=== PATIENT | female | born 1945 | race Caucasian/White ===

== ENCOUNTER 2017-05-19 20:49 | Emergency (ER) | payer MEDICARE, OTHER ==
[~2017-05-19] VITALS: Ht 154.9 cm; Wt 68.0 kg
[~2017-05-19 20:49] MED LIST: ACET500; ATOR10; CARI350; CARI350 PO; CODACE60; LISI10; METO50ER; OXYACE5T PO; ZOLP10
[2017-05-19] MEDS ORDERED: Robaxin-750750 MG PO (22:36)
== END 2017-05-19 22:50 | disposition home or self-care (01) ==
LOC: ER 20:49
DX: M19.012 Primary osteoarthritis, left shoulder (principal); I10 Essential (primary) hypertension; E78.00 Pure hypercholesterolemia, unspecified; Z88.8 Allergy status to other drugs, medicaments and biological substances; Z79.899 Other long term (current) drug therapy
CPT/HCPCS: 73030; 99283

== ENCOUNTER 2017-05-22 17:18 | Emergency (ER) | payer MEDICARE, OTHER ==
[~2017-05-22] VITALS: Ht 154.9 cm; Wt 68.0 kg
[~2017-05-22 17:18] MED LIST changes: +Robaxin-750750 MG PO
[2017-05-22] MEDS ORDERED: Robaxin-750750 MG PO (18:02)
== END 2017-05-22 18:09 | disposition home or self-care (01) ==
LOC: ER 17:18
DX: M54.2 Cervicalgia (principal); I10 Essential (primary) hypertension; E78.00 Pure hypercholesterolemia, unspecified; Z88.8 Allergy status to other drugs, medicaments and biological substances; Z79.899 Other long term (current) drug therapy
CPT/HCPCS: 99281

== ENCOUNTER 2017-08-08 08:35 | Day surgery (SDC) | payer MEDICARE, OTHER ==
[~2017-08-08] VITALS: Ht 154.9 cm; Wt 67.9 kg
[2017-08-08] MEDS ORDERED: SIMV40 PO (08:55)
[2017-08-08] MEDS ORDERED: CLON.2 PO (08:58)
[2017-08-08] MEDS ORDERED: HYDRA25 PO (08:59)
[2017-08-08] MEDS ORDERED: OXYC15ER PO (09:00)
[2017-08-08] MEDS ORDERED: Fiorinal Capsu1 EACH PO (09:01)
[2017-08-08] MEDS ORDERED: VENL75ER PO (09:01)
[2017-08-08] MEDS ORDERED: CYCL10 PO (09:02)
[2017-08-08] MEDS ORDERED: Ventolin/Prove6.7 GM (09:23)
[2017-08-08] MEDS ORDERED: Imitrex25 MG PO (09:24)
== END 2017-08-08 10:16 | disposition home or self-care (01) ==
LOC: ORSCSDS 08:35
PROVIDERS: Anesthesiology
PROC: 3E0R33Z Introduction of Anti-inflammatory into Spinal Canal, Percutaneous Approach (ICD-10-PCS; principal; 2017-08-08 09:45)
DX: M50.122 Cervical disc disorder at C5-C6 level with radiculopathy (principal); E78.00 Pure hypercholesterolemia, unspecified; F41.9 Anxiety disorder, unspecified; I10 Essential (primary) hypertension; F32.9 Major depressive disorder, single episode, unspecified; J45.909 Unspecified asthma, uncomplicated; Z79.899 Other long term (current) drug therapy
CPT/HCPCS: J1040; J2250; J3010

== ENCOUNTER 2018-08-01 10:07 | Emergency (ER) | payer MEDICARE, OTHER ==
[~2018-08-01] VITALS: Ht 154.9 cm; Wt 61.7 kg
[~2018-08-01 10:07] MED LIST changes: +CLON.2 PO; +CYCL10 PO; +Fiorinal Capsu1 EACH PO; +HYDRA25 PO; +IBUP600 PO; +Imitrex25 MG PO; +OXYC15ER PO; +Robaxin500 MG PO; +SIMV40 PO; +VENL75ER PO; +Ventolin/Prove6.7 GM
== END 2018-08-01 11:37 | disposition home or self-care (01) ==
LOC: ER 10:07
DX: S22.31XA Fracture of one rib, right side, initial encounter for closed fracture (principal); E78.00 Pure hypercholesterolemia, unspecified; I10 Essential (primary) hypertension; Z79.899 Other long term (current) drug therapy; Z88.8 Allergy status to other drugs, medicaments and biological substances; Z88.6 Allergy status to analgesic agent; W19.XXXA Unspecified fall, initial encounter
CPT/HCPCS: 96372; 99283-25; J1170

== ENCOUNTER 2018-08-03 20:03 | Inpatient (IN) | payer MEDICARE, OTHER ==
[~2018-08-03] VITALS: Ht 154.9 cm; Wt 63.7 kg
[~2018-08-03 20:03] MED LIST changes: -Ventolin/Prove6.7 GM; +Ventolin/Prove6.7 GM INH
[2018-08-03 21:36] LABS: BASOPHILS ABSOLUTE AUTO 0.05 K/mm3 (0.00-0.23); BASOPHILS PERCENT AUTO 0 % (0-2); EOSINOPHILS ABSOLUTE AUTO 0.01 K/mm3 (0.00-0.68); EOSINOPHILS PERCENT AUTO 0 % (0-6); Hematocrit 44.6 % (33.0-51.0); Hemoglobin 15.3 g/dL (11.5-16.0); IMMATURE GRAN ABSOLUTE AUTO 0.15 K/mm3 (0.00-0.10); IMMATURE GRAN PERCENT AUTO 1 % (0-1); LYMPHOCYTES ABSOLUTE AUTO 0.84 K/mm3 (0.84-5.20); LYMPHOCYTES PERCENT AUTO 5 % (21-46); MONOCYTES ABSOLUTE AUTO 0.85 K/mm3 (0.16-1.47); MONOCYTES PERCENT AUTO 5 % (4-13); Mean Corpuscular HGB Conc 34.3 g/dL (31.5-36.5); Mean Corpuscular Volume 93 fL (80-100); Mean Platelet Volume 9.4 fL (9.1-12.4); NEUTROPHILS ABSOLUTE AUTO 13.95 K/mm3 (1.96-9.15); NEUTROPHILS PERCENT AUTO 88 % (41-73); Platelet Count 398 K/mm3 (150-400); RDW Coefficient Variation 11.7 % (11.7-14.2); RDW Standard Deviation 40.2 fL (35.1-46.3); Red Blood Cell Count 4.78 M/mm3 (3.80-5.20); White Blood Cell Count 15.85 K/mm3 (4.00-11.30)
[2018-08-03 22:06] LABS: Albumin, Blood 4.2 g/dL (3.4-5.0); Bilirubin, Total 0.6 mg/dL (0.1-1.0); Calcium, Blood 14.3 mg/dL (8.5-10.1); Creatinine, Blood 1.27 mg/dL (0.40-1.00); Globulin, Blood 4.3 g/dL (2.2-4.0); Total Protein, Blood 8.5 g/dL (6.4-8.2)
[2018-08-03 23:25] LABS: Free Thyroxine 1.8 ng/dL (0.70-1.60); Magnesium, Blood 2.4 mg/dL (1.6-2.4)
[2018-08-03 23:32] LABS: Thyroid Stimulating Hormone 0.713 uIU/mL (0.360-4.800); Triiodothyronine, Free 2.07 pg/mL (2.18-3.98)
[2018-08-04 00:07] LABS: Creatine Kinase MB 27.8 ng/mL (0.0-3.6); Creatine Kinase MB Index 2.5 (0.0-4.0)
[2018-08-04 03:57] LABS: BASOPHILS ABSOLUTE AUTO 0.02 K/mm3 (0.00-0.23); BASOPHILS PERCENT AUTO 0 % (0-2); EOSINOPHILS ABSOLUTE AUTO 0.01 K/mm3 (0.00-0.68); EOSINOPHILS PERCENT AUTO 0 % (0-6); Hematocrit 40.4 % (33.0-51.0); Hemoglobin 13.8 g/dL (11.5-16.0); IMMATURE GRAN ABSOLUTE AUTO 0.13 K/mm3 (0.00-0.10); IMMATURE GRAN PERCENT AUTO 1 % (0-1); LYMPHOCYTES ABSOLUTE AUTO 1.06 K/mm3 (0.84-5.20); LYMPHOCYTES PERCENT AUTO 8 % (21-46); MONOCYTES ABSOLUTE AUTO 1.22 K/mm3 (0.16-1.47); MONOCYTES PERCENT AUTO 9 % (4-13); Mean Corpuscular HGB 31.9 pg (26.0-34.0); Mean Corpuscular HGB Conc 34.2 g/dL (31.5-36.5); Mean Corpuscular Volume 93 fL (80-100); Mean Platelet Volume 9.2 fL (9.1-12.4); NEUTROPHILS ABSOLUTE AUTO 10.56 K/mm3 (1.96-9.15); NEUTROPHILS PERCENT AUTO 81 % (41-73); Platelet Count 384 K/mm3 (150-400); RDW Coefficient Variation 11.7 % (11.7-14.2); RDW Standard Deviation 40.4 fL (35.1-46.3); Red Blood Cell Count 4.33 M/mm3 (3.80-5.20)
--- NOTE | 2018-08-04 04:16 | NUR ---
ADMISSION: PATIENT ADMISSION AND ASSESSMENT COMPLETED. PATIENT HAS INTERMITTENT NONSENSICAL SPEECH, THINKING SHE WAS HOME AT ONE POINT. PATIENT IS CONSTANTLY FIDGETING, PULLED OUT 2 IV'S AND CONTINUOUSLY PULLS OF O2 SENSOR FROM FINGER. NEW 20 GAUGE PLACED BY ULTRA SOUND INTO REENA, PATIENT STATED THE IVF HURT HER EVEN THOUGH THEY WERE NOT RUNNING, WHEN PATIENT CALMED DOWN IVF RESTARTED AND PATIENT DID NOT COMPLAIN OF PAIN. PATIENT C/O SEVER PAIN STATING DILAUDID DOES NOT WORK WITH MOANING, GRIMACING AND ROCKING. WHEN PATIENT IS UNAWARE THAT NURSE IS THERE SHE EXIBITS NONE OF THE PAIN SIGNS ONLY THE NONSTOP BODY MOVEMENTS. PATIENTS HR AND BP HAVE GONE DOWN AFTER ADMINISTRATION OF DILAUDID TOO. NURSE ASKED PATIENT IF SHE HAD TAKEN ANY SUBSTANCES SUCH METHANPHETAMINES WHICH COULD BE AFFECTING HER BP AND HR. PATIENT STATED NO AND THAT SHE USED TO BE TO A HEROIN ADDICT. WILL CONTINUE TO MONITOR HR AND BP TO CONTINUE IMPROVEMENT.
[2018-08-04 04:41] LABS: Albumin, Blood 3.7 g/dL (3.4-5.0); Albumin/Globulin Ratio 0.9 (0.8-1.8); Bilirubin, Total 0.6 mg/dL (0.1-1.0); Bun/Creatinine Ratio 22.5 (12.0-20.0); Calcium, Blood 13.9 mg/dL (8.5-10.1); Creatinine, Blood 1.2 mg/dL (0.40-1.00); Globulin, Blood 3.9 g/dL (2.2-4.0); Potassium, Blood 3.8 mmol/L (3.5-5.5); Total Protein, Blood 7.6 g/dL (6.4-8.2)
--- NOTE | 2018-08-04 08:00 | NUR ---
pt laying in bed with eyes open, has jerking motions of all ext. continuously. she is able to answer orientation questions, but is confused in speech, says random things. lungs are clear in upper henri[place], dim in bases, but not able to take deep breaths, and unable to fully cooperate with assessment, follows some commands. states she has not voided all night, and feels like she needs to go badly, reports she can't get oob at this time, states the last time she attempted to get to the br at home it took her 7 hrs, asked her why her spouce isn't assisting her, she said he tries but pulls on her the wrong way, did a bladder scan which showed over 999mls. Dr. Gomez called and ok to drain bladder, but should not leave bolaños. this was done with steril technique, draining clear yellow urine. states she takes her pain meds for her neck stenosis. iv to ayesha infiltrated, fluid was stopped until we can get another line established, hrr, tele in place running st per monitor, hitting 130 -140's, no edema noted, ppp+2, cap refill <3sec, skin has wound to her right elbow, apparently took a fall at home and broke ribs on the right, dressing to elbow. her knees and feet are red, not open. moves ext well, but refusing to get oob, gloria. call light in reach.
[2018-08-04 09:11] LABS: Source, Urine Catheter
[2018-08-04 09:48] LABS: Bilirubin, Urine Neg (Neg); Blood, Urine 2+ (Neg); Glucose Qualitative, Urine 1+ (Neg); Ketones, Urine 2+ (Neg); Leukocyte Esterase, Urine Neg (Neg); Nitrite, Urine Neg (Neg); Protein, Urine 2+ (Neg); Urobilinogen, Urine NORM (Normal); pH, Urine 6.5 (5.0-8.0)
[2018-08-04 10:10] LABS: Appearance, Urine Clear (Clear); Color, Urine Yellow (P-Yellow)
[2018-08-04 10:14] LABS: Bacteria Rare /hpf; Red Blood Cells, Urine 0-2 /hpf (0-2); Squamous Epithelial Cells Rare /hpf (Few)
[2018-08-04 10:15] LABS: Granular Casts 0-2 /lpf (0); White Blood Cells, Urine Not Seen /hpf (0-5)
[2018-08-04] MEDS ORDERED: METO50 PO (11:29)
[2018-08-04] MEDS ORDERED: HYDPAM50 PO (11:31)
[2018-08-04] MEDS ORDERED: LEVSOD137 PO (11:32)
[2018-08-04] MEDS ORDERED: CYCL10 PO (11:33)
[2018-08-04] MEDS ORDERED: OXYC15ER PO (11:40)
[2018-08-04 13:22] LABS: U Amphetamine Screen Not Detected; U Barbituate Screen Not Detected; U Benzodiazapine Screen Not Detected; U Buprenorphine Screen Not Detected; U Cannabinoids Screen Not Detected; U Cocaine Screen Not Detected; U Methadone Screen Not Detected; U Methamphetamine Screen Not Detected; U Opiates Screen Not Detected; U Oxycodone Screen DETECTED; U Phencyclidine Screen Not Detected; U Propoxyphene Screen Not Detected
--- NOTE | 2018-08-04 13:30 | NUR ---
pt laying in bed, is sleeping, seems to be much more relaxed and not jerking like she was. wakes easily, states as long as she isn't coughing or moving she isn't having pain, but if she coughs it's 10. call light in reach. spouce was in to see her as well as her son.
--- NOTE | 2018-08-04 17:14 | NUR ---
pt b/p is better this afternoon, but heart rate continues in the 130's, spoke with Dr. Gomez about it, no new orders recieved. call pt has been sleeping through the afternoon, wakes easily. spouce was in to see her, gave an update. call light in reach.
--- NOTE | 2018-08-04 19:35 | NUR ---
CALLED BACK AND ASKED NURSE TO GIVE HER PAIN MED. SHE IS SLEEPING SOUNDLY, SNORING DOES WAKE EASILY, STATES PAIN IS OK. GAVE SMALL DOSE OF DILAUDID WITHOUT RESULTS. CALL LIGHT IN REACH.
[2018-08-05 03:58] LABS: BASOPHILS ABSOLUTE AUTO 0.02 K/mm3 (0.00-0.23); BASOPHILS PERCENT AUTO 0 % (0-2); EOSINOPHILS ABSOLUTE AUTO 0.01 K/mm3 (0.00-0.68); EOSINOPHILS PERCENT AUTO 0 % (0-6); Hematocrit 37.8 % (33.0-51.0); IMMATURE GRAN ABSOLUTE AUTO 0.11 K/mm3 (0.00-0.10); IMMATURE GRAN PERCENT AUTO 1 % (0-1); LYMPHOCYTES ABSOLUTE AUTO 1.27 K/mm3 (0.84-5.20); LYMPHOCYTES PERCENT AUTO 15 % (21-46); MONOCYTES ABSOLUTE AUTO 1.04 K/mm3 (0.16-1.47); MONOCYTES PERCENT AUTO 12 % (4-13); Mean Corpuscular HGB 31.4 pg (26.0-34.0); Mean Corpuscular HGB Conc 34.4 g/dL (31.5-36.5); Mean Corpuscular Volume 91 fL (80-100); Mean Platelet Volume 8.8 fL (9.1-12.4); NEUTROPHILS ABSOLUTE AUTO 6.11 K/mm3 (1.96-9.15); NEUTROPHILS PERCENT AUTO 72 % (41-73); Platelet Count 374 K/mm3 (150-400); RDW Coefficient Variation 11.9 % (11.7-14.2); RDW Standard Deviation 40.1 fL (35.1-46.3); Red Blood Cell Count 4.14 M/mm3 (3.80-5.20); White Blood Cell Count 8.56 K/mm3 (4.00-11.30)
[2018-08-05 04:18] LABS: CPK Creatine Kinase 181 U/L (26-193)
[2018-08-05 04:27] LABS: Albumin, Blood 2.8 g/dL (3.4-5.0); Anion Gap 8 mmol/L (6-16); Blood Urea Nitrogen 19 mg/dL (8-24); Bun/Creatinine Ratio 23.3 (12.0-20.0); CO2, Blood 25 mmol/L (21-32); Chloride, Blood 96 mmol/L (98-108); Creatinine, Blood 0.81 mg/dL (0.40-1.00); Glomerular Filtration Rate >60 (60-); Glucose, Blood 95 mg/dL (70-99); Phosphorus, Blood 1.4 mg/dL (2.5-4.9); Potassium, Blood 3.2 mmol/L (3.5-5.5); Sodium, Blood 129 mmol/L (136-145)
[2018-08-05 04:29] LABS: Calcium, Blood 10.9 mg/dL (8.5-10.1)
--- NOTE | 2018-08-05 04:31 | NUR ---
SHIFT SUMMARY: PATIENTS SON STATED THAT HE DID NOT WANT HIS MOTHER TO BE DISCHARGED WITHOUT NOTIFYING HIM BECAUSE HE IS ATTEMPTING TO GET A BED FOR HER. PATIENTS SON STATED THAT SHE HAS BEEN SLEEPING IN A CHAIR FOR A FEW MONTHS NOW, HE ALSO WANTED THE MD TO KNOW THAT PATIENT HAS BEEN TAKING MEDICATIONS THAT ARE NOT HERS, SOME OF THE MEDICATIONS SHE TAKES ARE HER HUSBANDS ACCORDING TO SON. BAG WAS OF ALL MEDICATIONS SHE TAKES WAS PROVIDED AND GIVEN TO PHARMACY. PATIENT SLEPT MAJORITY OF NIGHT, HR STILL HIGH BUT ALL OTHER VSS. BED IS LOW AND LOCKED WITH EXIT ALARM ON.
--- NOTE | 2018-08-05 11:37 | NUR ---
BEGINNING OF SHIFT Assumed care at 0700. Report received from Michelle MEDINA. Pt on room air. [place] mentation. When explaining plan of care, pt often interjects "Yeah. I know." Pt initially refused scheduled oxycodone, stating "I'm not going to take it. It does nothing for my rib pain and I'm trying to stop taking it anyways. I don't want to be on it anymore." This RN explained benefits of using PO pain medication in addition to IV pain medication. Pt unreceptive and continues to refuse PO pain meds. Pt requests dose of dilaudid instead. Within one hour of administration, pt's HR gradually decreased from 130s-140s to 110s-120s. Pt awake and talking to staff. While Dr Gomez at bedside, this RN notified provider that pt was refusing PO pain medication. Upon attempting to educate the pt on neccesity to use PO pain control along with IV pain control, pt became defensive and irritable, insulting staff members and asking for staff to "leave me alone". This RN remained at bedside until pt deescalated. Pt then became receptive to education and agreed to use oxycodone and flutter valve. Goals set with patient to sit up in chair for dinner today. Pt states this is a reasonable goal and states she would like her pain to be controlled enough for her to start moving around. Flutter valve placed at bedside and educated pt on use. Pt states "I'll use it when I am able to sit up."
--- NOTE | 2018-08-05 17:44 | NUR ---
SHIFT SUMMARY No changes noted since shift assessment. Pt successfully sat up on edge of bed and transferred to chair with this RN. Pt then worked with physical therapy and mobilized into the bathroom. Pt has been agreeable to taking PO oxycodone. Dilaudid has been offered several times, reminding the patient that pain control is important because she needs to take deep breaths, cough, and move around. Pt verbalizes understanding, but often states she does not think she needs it. Pt has been using flutter valve and incentive spirometer. Pt had one visitor earlier, she states this visitor is her son. While visiting with the patient, the son made several accusatory comments towards the patient "Are you going to admit to taking the drugs?" "Did she put drugs in your drink" "I know you were taking dad's meds". This visitor spent about 45 minutes at the pt's bedside.
--- NOTE | 2018-08-05 21:41 | NUR ---
1915 ASSUMED CARE OF PATIENT, PATIENT IN [facility] VISITING WITH SON. STILL REPORTS PAIN IN LEFT SIDE, BUT WORSE WITH COUGH. SEE [employer] FOR FULL ASSESSMENT. PLAN FOR NOC SHIFT DISCUSSED, PATIENT AGREES. CALL LIGHT IN REACH, BED IN LOW POSITINE AND ALARM ON. WILL CONTINUE TO MONITOR
--- NOTE | 2018-08-06 05:52 | NUR ---
RESTING IN BED, MORE ALERT AND CALM THIS AM, BED IN LOW POSITION, CALL LIGHT IN REACH, ROOM TIDIED, WILL MONITOR TILL DAYSHIFT HAND OFF.
--- NOTE | 2018-08-06 09:01 | NUR ---
BEGINNING OF SHIFT Assumed care at 0700. Report recieved from Fermín MEDINA. Pt on room air. Sinus tachycardia per telemetry. Pt OOB to chair this morning for breakfast. Pt to be transferred to room 235. Report given to Medina MEDINA.
[2018-08-06 09:13] LABS: Anion Gap 8 mmol/L (6-16); Blood Urea Nitrogen 18 mg/dL (8-24); Bun/Creatinine Ratio 26.9 (12.0-20.0); CO2, Blood 25 mmol/L (21-32); Chloride, Blood 100 mmol/L (98-108); Creatinine, Blood 0.67 mg/dL (0.40-1.00); Glomerular Filtration Rate >60 (60-); Glucose, Blood 100 mg/dL (70-99); Phosphorus, Blood 1.1 mg/dL (2.5-4.9); Potassium, Blood 3.7 mmol/L (3.5-5.5); Sodium, Blood 133 mmol/L (136-145)
--- NOTE | 2018-08-06 09:23 | NUR ---
TRANSFER Pt transferred to room 235 via wheelchair accompanied by Noemi VACA and agustin RN. Meds, chart, and belongings transferred with patient.
--- NOTE | 2018-08-06 09:30 | NUR ---
pt arrived to room 235 from pcu oriented to room layout oob in chair to eat breakfast when pt is complete will assist back to bed
--- NOTE | 2018-08-06 10:57 | NUR ---
dr ventura called with message called reuben lisinopril 20 mg daily and hctz 25 mg daily
--- NOTE | 2018-08-06 11:03 | NUR ---
aspen ventura called back message given
--- NOTE | 2018-08-06 11:57 | NUR ---
PT KEMP CATH REMOVED PT HAD A BM
--- NOTE | 2018-08-06 16:15 | NUR ---
PT HAD A BM TOOK OUT THE HAT STATED SHE VOIDED
--- NOTE | 2018-08-06 18:28 | NUR ---
PT SITTING UP ON EDGE OF THE BED ZULEIKA PT STATED SHE TAKES EFFEXOR GOT A MEDS LIST FROM [facility] PT STATED SHE GETS IT FROM THE [place] MAIL ORDERED CALLED THEM THEY WOULD NOT RELASE THE ONFO OVER THE PHONE
--- NOTE | 2018-08-07 05:41 | NUR ---
PT HAD NO ACUTE CHANGES T/O NIGHT. HR SINUS TACH 1'TEENS PER TELE MONITOR. PT DENIED CP/PRESSURE/SOB. SATS >90% ON RA. I/S AND FLUTTER VALVE USE ENC. PAIN MGD W/PO PAIN MEDS AND ICE THERAPY. PT UP OOB W/SBA, DENIED DIZZINESS WHEN UP. PT USING CALL LIGHT FOR ASSISTANCE, BED ALARM ON FOR SAFETY. WILL CONT TO MONITOR UNTIL REP GIVEN TO ONCOMING RN.
--- NOTE | 2018-08-07 07:32 | NUR ---
pt sitting on edge of the bed pt has a benadryl pill loose on the floor pt stated she took it out of her purse and took some last night "im not taking pain meds if thats what you are thinking" assisted pt to bathroom pt wanting to sit up in chair
--- NOTE | 2018-08-07 10:38 | NUR ---
DR MOBLEY BY TO SEE PT PLAN FOR DISCHARGE [facility] PT DECLINING SHOWER AT THIS TIME STATED SHE IS SHAKEY AFTER THE WALK
--- NOTE | 2018-08-07 11:32 | NUR ---
PT REPOSISITONED STATED PAIN IS 7/10 PO OXY GIVEN
[2018-08-07] MEDS ORDERED: CLON.1 PO (12:15)
[2018-08-07] MEDS ORDERED: OXYC10ER PO (12:16)
[2018-08-07] MEDS ORDERED: LISI20 PO (12:18)
[2018-08-07] MEDS ORDERED: LIDO700A20 TOP (12:19)
[2018-08-07] MEDS ORDERED: GAVILAX17 GM PO (12:20)
[2018-08-07] MEDS ORDERED: OXYC5 PO (12:21)
--- NOTE | 2018-08-07 12:50 | NUR ---
DISCHARGE INSTRUCTIONS REVIEWED WITH PT VERBALIZED RX GIVEN AND RX CALLED TO [facility] PT REQ I GO OVER HER MEDS WITH HER SON WHEN THEY COME TO PICK HER UP
--- NOTE | 2018-08-07 14:20 | NUR ---
PT FAMILY AT BEDSIDE DISCHARGE INSTRUCTIONS REVIEWED WITH THEM ALONG WITH HER MEDS IN DETAIL ALSO GAVE THEM THE HARD COPIES OF HER MEDS WC ESCORT TO CAR
--- NOTE | 2018-08-07 15:06 | NUR ---
reuben called stated pt also had a rx for another dr for her 15 mg oxy rx from her pain dr talked with pharmacy to hold that rx untill this rx is done
== END 2018-08-07 14:03 | disposition home or self-care (01) | DRG 683 ==
LOC: ER 20:03 → PCU 08-04 00:43 → SURS 08-04 00:43 → PCU 08-04 01:55 → SURS 08-06 09:15
PROVIDERS: Emergency Medicine; Internal Medicine; Nurse Practitioner Acute Care; Physician Assistant; ADMIT Internal Medicine
DX: N17.9 Acute kidney failure, unspecified (principal); S27.0XXA Traumatic pneumothorax, initial encounter; S22.41XA Multiple fractures of ribs, right side, initial encounter for closed fracture; M62.82 Rhabdomyolysis; E87.1 Hypo-osmolality and hyponatremia; W19.XXXA Unspecified fall, initial encounter; K59.00 Constipation, unspecified; I10 Essential (primary) hypertension; E83.52 Hypercalcemia; G43.909 Migraine, unspecified, not intractable, without status migrainosus; E78.5 Hyperlipidemia, unspecified; E86.0 Dehydration; R33.9 Retention of urine, unspecified; E87.6 Hypokalemia; G89.4 Chronic pain syndrome; Z79.891 Long term (current) use of opiate analgesic
CPT/HCPCS: 36415; 71046; 74176; 80053; 80069; 81001; 82306; 82330; 82533; 82550; 82553; 82652; 83605; 83735; 83970; 84439; 84443; 84481; 84484; 85025; 93005; 93010; 94762; 96361; 96372; 96374; 96375; 96376; 97116; 97161; 97166; 97530; 99283-25; 99285-25; C9113; J0360; J0630; J1170; J1650; J1885; J3010; J7030; J7060

== ENCOUNTER 2018-08-11 14:56 | Inpatient (IN) | payer MEDICARE, OTHER ==
[~2018-08-11] VITALS: Ht 154.9 cm; Wt 63.5 kg
[~2018-08-11 14:56] MED LIST changes: +CLON.1 PO; +GAVILAX17 GM PO; +HYDPAM50 PO; +LEVSOD137 PO; +LIDO700A20 TOP; +LISI20 PO; +METO50 PO; +OXYC10ER PO; +OXYC5 PO
[2018-08-11 15:59] LABS: Hematocrit 38.9 % (33.0-51.0); Hemoglobin 13.2 g/dL (11.5-16.0); Mean Corpuscular HGB 31.6 pg (26.0-34.0); Mean Corpuscular HGB Conc 33.9 g/dL (31.5-36.5); Mean Corpuscular Volume 93 fL (80-100); Mean Platelet Volume 8.2 fL (9.1-12.4); NRBC ABSOLUTE 0.08 K/mm3 (0.00-0.02); NRBC Auto 0.7 /100 WBC (0.0-0.2); Platelet Count 469 K/mm3 (150-400); RDW Coefficient Variation 11.8 % (11.7-14.2); RDW Standard Deviation 40.3 fL (35.1-46.3); Red Blood Cell Count 4.18 M/mm3 (3.80-5.20); White Blood Cell Count 10.75 K/mm3 (4.00-11.30)
[2018-08-11 16:21] LABS: Alanine Aminotransfer (ALT/SGP 62 U/L (12-78); Albumin, Blood 3.8 g/dL (3.4-5.0); Alk Phos 123 U/L (50-136); Anion Gap 11 mmol/L (6-16); Aspartate Aminotrans (AST/SGOT 35 U/L (12-37); Bilirubin, Total 0.3 mg/dL (0.1-1.0); Blood Urea Nitrogen 12 mg/dL (8-24); Bun/Creatinine Ratio 20.6 (12.0-20.0); CO2, Blood 26 mmol/L (21-32); Calcium, Blood 10.2 mg/dL (8.5-10.1); Chloride, Blood 85 mmol/L (98-108); Creatinine, Blood 0.58 mg/dL (0.40-1.00); Globulin, Blood 3.9 g/dL (2.2-4.0); Glomerular Filtration Rate >60 (60-); Glucose, Blood 150 mg/dL (70-99); Magnesium, Blood 1.4 mg/dL (1.6-2.4); Potassium, Blood 3.6 mmol/L (3.5-5.5); Sodium, Blood 122 mmol/L (136-145); Total Protein, Blood 7.7 g/dL (6.4-8.2)
[2018-08-11 17:52] LABS: BASOPHILS PERCENT MAN 0 % (0-2); EOSINOPHILS PERCENT MAN 0 % (0-6); LYMPHOCYTES % ATYPICAL MANUAL 6 % (0-0); LYMPHOCYTES ABSOLUTE MAN 2.25 K/mm3 (0.84-5.20); LYMPHOCYTES PERCENT MAN 15 % (21-46); MONOCYTES ABSOLUTE MAN 0.75 K/mm3 (0.16-1.47); MONOCYTES PERCENT MAN 7 % (4-13); NEUTROPHILS ABSOLUTE MAN 7.74 K/mm3 (1.96-9.15); SEG NEUTROPHILS PERCENT MAN 72 % (41-73); TOTAL CELLS COUNTED 100
[2018-08-11 17:59] LABS: Source, Urine Catheter
[2018-08-11 18:14] LABS: Bilirubin, Urine Neg (Neg); Blood, Urine Neg (Neg); Glucose Qualitative, Urine 3+ (Neg); Ketones, Urine Neg (Neg); Leukocyte Esterase, Urine Neg (Neg); Nitrite, Urine Neg (Neg); Protein, Urine Neg (Neg); Urobilinogen, Urine NORM (Normal)
[2018-08-11 18:34] LABS: Appearance, Urine Clear (Clear); Color, Urine Yellow (P-Yellow)
[2018-08-12 05:09] LABS: Anion Gap 9 mmol/L (6-16); Blood Urea Nitrogen 9 mg/dL (8-24); Bun/Creatinine Ratio 14.1 (12.0-20.0); CO2, Blood 23 mmol/L (21-32); Calcium, Blood 9.7 mg/dL (8.5-10.1); Chloride, Blood 95 mmol/L (98-108); Creatinine, Blood 0.64 mg/dL (0.40-1.00); Glomerular Filtration Rate >60 (60-); Glucose, Blood 144 mg/dL (70-99); Potassium, Blood 3.8 mmol/L (3.5-5.5); Sodium, Blood 127 mmol/L (136-145)
--- NOTE | 2018-08-12 06:15 | NUR ---
SHIFT SUMMARY PT ARRIVED TO ROOM APPROX 1999. AFFECT ANXIOUS. CONFUSION/FORGETFUL AT TIMES. C/O PAIN IN BACK BUT DIDN'T WANT ANY PAIN MEDS FOR IT. C/O PERKINS AND MEDICATED PER EMAR FOR THAT. TELE SHOWED NSR @ 96 PER APPLIANCE SERVICE REPRESENTATIVE AT 2043. SBA TO BA. CALL LIGHT IN REACH.
--- NOTE | 2018-08-12 07:00 | NUR ---
Assume care of patient Assumed care of patient with Anika from night nurse Diana MEDINA. Received in report patient was confused and anxious at times, has chronic back pain, and declines pain meds including lidocaine patch. family services worker referral for discharge planning to home and palliative care consult ordered.
--- NOTE | 2018-08-12 12:16 | NUR ---
Pain Management Patient declines Lidocaine and Oxycodone for pain management. She c/o insomnia r/t these meds and prefers Acetaminophen. Dr Romo contacted and verbal order for Acetaminophen was obtained.
--- NOTE | 2018-08-12 15:35 | NUR ---
Pain management Patient requested Oxycotin for pain and stated Acetaminophen was not working. 5mg Oxycotin given, will re-evaluate and continue to monitor.
--- NOTE | 2018-08-12 17:18 | NUR ---
Shift summary Patient has been anxious and talkative, cooperative with care t/o the day. Medicated for pain with acetaminophen; however, patient reported no pain relief and requested Oxycodone which helped with pain relief. Per son, Dr. Lobato requested referral to [facility] and would like to know the process of being seen there. Please contact Iovry when she's in the hospital to see what further steps are needed for this to happen. No acute changes this shift.
[2018-08-13 08:17] LABS: Anion Gap 7 mmol/L (6-16); Blood Urea Nitrogen 12 mg/dL (8-24); Bun/Creatinine Ratio 20.8 (12.0-20.0); CO2, Blood 24 mmol/L (21-32); Calcium, Blood 9.6 mg/dL (8.5-10.1); Chloride, Blood 99 mmol/L (98-108); Creatinine, Blood 0.58 mg/dL (0.40-1.00); Glomerular Filtration Rate >60 (60-); Glucose, Blood 138 mg/dL (70-99); Potassium, Blood 3.9 mmol/L (3.5-5.5); Sodium, Blood 130 mmol/L (136-145)
--- NOTE | 2018-08-13 18:15 | NUR ---
SHIFT SUMMARY PATIENT A&O X4, SBA TO BATHROOM. C/O ACUTE RIGHT RIB PAIN THROUGHOUT THE SHIFT. RN MEDICATED PER E JUL. DENIES ANY SOB OR NAUSEA. RESP E/U ON RA, SATS >90%. RESTED THROUGHOUT THE SHIFT. FAMILY AT THE BEDSIDE. BED IN LOWEST POSITION, CALL LIGHT WITHIN REACH. NO ACUTE CHANGES. RN WILL CONTINUE TO MONITOR.
--- NOTE | 2018-08-14 05:56 | NUR ---
RADIO TIME SALESPERSON SUMMARY NO ACUTE CHANGES THIS SHIFT. PT AAOX3 AND INDEPENDENT IN HER ROOM. TREATED FOR R RIB PAIN X2 WITH ROXICODONE, GOOD PAIN RELIEF PER PT. PT EXPRESSED CONCERN STATING THAT "MY HAS [facility]POINTMENT [facility] (08/14) TO BE EVALUATED FOR DEMENTIA". PT IS WORRIED ABOUT MISSING APPOINTMENT WHILE SHE IS IN THE HOSPITAL. PT IS A POSSIBLE DC LATER TODAY. VSS, WILL CONTINUE TO MONITOR.
--- NOTE | 2018-08-14 11:29 | NUR ---
DISCHARGE SUMMARY PT LEFT WITH WITH PAPER SCRIPT FOR OXYCODONE (10 PILLS). PT DENIED PAIN. THIS MORNING, SHE WAS A BIT FUZZY AND PERSEVERATING ON THE FACT THAT SHE HAD A DREAM WHERE REALITY WAS THE DREAM AND SHE WASN'T SURE IF SHE WAS STILL SLEEPING. THIS WAS VERY SCARY FOR HER. BUT SHE SEEMED TO CLEAR ONCE HER ARRIVED. PIV REMOVED, PAPERWORK GONE OVER. LEFT WITH
--- NOTE | 2018-08-14 18:39 | NUR ---
PER DR TEMPLE, CALLED IN HYDRALAZINE 25MG PO TID #[id number] NO REFILLS TO [facility]. CALLED SON TO INFORM AT [phone]
== END 2018-08-14 10:52 | disposition home health service (06) | DRG 644 ==
LOC: ER 14:56 → MEDS 17:58 → ENPENDDIS 08-14 09:57 → EDPENDDIS 08-14 09:57 → MEDS 08-14 10:52
PROVIDERS: Emergency Medicine; Hospitalist; ADMIT Internal Medicine
DX: E22.2 Syndrome of inappropriate secretion of antidiuretic hormone (principal); F11.20 Opioid dependence, uncomplicated; I10 Essential (primary) hypertension; E78.00 Pure hypercholesterolemia, unspecified; G43.909 Migraine, unspecified, not intractable, without status migrainosus; E83.52 Hypercalcemia; E86.0 Dehydration; G89.29 Other chronic pain; E78.5 Hyperlipidemia, unspecified; E03.9 Hypothyroidism, unspecified; K59.03 Drug induced constipation; T48.3X5A Adverse effect of antitussives, initial encounter; Y92.9 Unspecified place or not applicable; I16.0 Hypertensive urgency; S22.32XD Fracture of one rib, left side, subsequent encounter for fracture with routine healing
CPT/HCPCS: 36415; 80048; 80053; 81003; 83735; 84295; 85025; 96361; 96374; 97162; 97530; 99285-25; J2405; J3475; J7030

== ENCOUNTER 2018-09-20 15:41 | Emergency (ER) | payer MEDICARE, OTHER ==
[~2018-09-20] VITALS: Ht 154.9 cm; Wt 59.4 kg
[~2018-09-20 15:41] MED LIST changes: +ACET500 PO; +ALBU90OI6 INH; +SUMA25 PO; -Ventolin/Prove6.7 GM INH
[2018-09-20] MEDS ORDERED: Fiorinal Capsu1 EACH PO (15:52)
[2018-09-20 16:45] LABS: BASOPHILS ABSOLUTE AUTO 0.06 K/mm3 (0.00-0.23); BASOPHILS PERCENT AUTO 1 % (0-2); EOSINOPHILS ABSOLUTE AUTO 0.11 K/mm3 (0.00-0.68); EOSINOPHILS PERCENT AUTO 1 % (0-6); Hematocrit 41.5 % (33.0-51.0); Hemoglobin 13.7 g/dL (11.5-16.0); IMMATURE GRAN ABSOLUTE AUTO 0.04 K/mm3 (0.00-0.10); IMMATURE GRAN PERCENT AUTO 1 % (0-1); LYMPHOCYTES ABSOLUTE AUTO 1.43 K/mm3 (0.84-5.20); LYMPHOCYTES PERCENT AUTO 19 % (21-46); MONOCYTES ABSOLUTE AUTO 0.46 K/mm3 (0.16-1.47); MONOCYTES PERCENT AUTO 6 % (4-13); Mean Corpuscular HGB 31.6 pg (26.0-34.0); Mean Corpuscular Volume 96 fL (80-100); Mean Platelet Volume 9.7 fL (9.1-12.4); NEUTROPHILS ABSOLUTE AUTO 5.62 K/mm3 (1.96-9.15); NEUTROPHILS PERCENT AUTO 73 % (41-73); Platelet Count 377 K/mm3 (150-400); RDW Coefficient Variation 12.8 % (11.7-14.2); RDW Standard Deviation 44.4 fL (35.1-46.3); Red Blood Cell Count 4.33 M/mm3 (3.80-5.20); White Blood Cell Count 7.72 K/mm3 (4.00-11.30)
[2018-09-20 16:57] LABS: Alanine Aminotransfer (ALT/SGP 29 U/L (12-78); Albumin, Blood 4.2 g/dL (3.4-5.0); Albumin/Globulin Ratio 1.1 (0.8-1.8); Alk Phos 126 U/L (50-136); Anion Gap 7 mmol/L (6-16); Aspartate Aminotrans (AST/SGOT 19 U/L (12-37); Bilirubin, Total 0.3 mg/dL (0.1-1.0); Blood Urea Nitrogen 10 mg/dL (8-24); Bun/Creatinine Ratio 15.7 (12.0-20.0); CO2, Blood 25 mmol/L (21-32); Calcium, Blood 10.2 mg/dL (8.5-10.1); Chloride, Blood 105 mmol/L (98-108); Creatinine, Blood 0.64 mg/dL (0.40-1.00); Globulin, Blood 3.8 g/dL (2.2-4.0); Glomerular Filtration Rate >60 (60-); Glucose, Blood 135 mg/dL (70-99); Potassium, Blood 3.3 mmol/L (3.5-5.5); Sodium, Blood 137 mmol/L (136-145)
[2018-09-20] MEDS ORDERED: Lopressor 25 mg25 MG PO (19:09)
== END 2018-09-20 19:30 | disposition home or self-care (01) ==
LOC: ER 15:41
PROVIDERS: Emergency Medicine
DX: I16.0 Hypertensive urgency (principal); G43.909 Migraine, unspecified, not intractable, without status migrainosus; E78.00 Pure hypercholesterolemia, unspecified
CPT/HCPCS: 36415; 80053; 85025; 93005; 93010; 96374; 96375; 96376; 99284-25; J2060

== ENCOUNTER 2019-05-30 13:44 | Day surgery (SDC) | payer MEDICARE, OTHER ==
[~2019-05-30] VITALS: Ht 154.9 cm; Wt 61.9 kg
[~2019-05-30 13:44] MED LIST changes: +Lopressor 25 mg25 MG PO
[2019-05-30] MEDS ORDERED: TIZA4 (14:20)
[2019-05-30] MEDS ORDERED: OXYC10TA19 (14:21)
[2019-05-30] MEDS ORDERED: TRAZ50 (14:21)
[2019-05-30] MEDS ORDERED: Cymbalta20 MG (14:22)
--- NOTE | 2019-05-30 16:25 | NUR ---
05/30/19 1625 Cyndee Watters S PT. C/O PAIN COMING OUT OF HER PROCEDURE. PT. DESCRIBES FROM HER NECK GENERATING TO MIDDLE OF HER HEAD & BACK OF NECK INTO HER SHOULDERS. PT. STATES "FEELS LIKE CRAMPING." PT. STATES "TRYING TO GIVE ME A PERKINS ON MY RIGHT SIDE." OFFERRED PT. A WARM BLANKET OR WARM PACK PT. DIDN'T LIKE THAT. PT. DIDN'T WANT A BULKY ICE PACK. PT. JUST WANTED TO TRY A COOL WASH CLOTH. NOTIFIED & HE TALKED TO PT. ABOUT HER PAIN. PER DR. RAZA HE INSTRUCTED PT. THAT IT WOULD TAKE TIME FOR HER INJECTION TO WORK & TO RELAX A BIT FOR ABOUT 20 MIN. PT. OFFERRED SOMETHING TO DRINK & A SNACK TO EAT BUT PT. REFUSED ANY. PT. ALSO DIDN'T WANT HER TO COME BACK. PT.'S WAS NOTIFIED THAT SHE WASN'T READY FOR HIM TO COME BACK. DR. RAZA GAVE NO ORDERS FOR PT. FOR ANY PAIN MEDS WHEN HE KNEW ABOUT PT.'S PAIN. PT. HAD RATED HER PAIN A "9-10". PT. WAS GIVEN HOME INSTRUCTIONS WITH UNDERSTANDING & INSTRUCTED SHE COULD ALTERNATE WARM PACKS & COLD PACKS FOR DISCOMFORT. PT. HAD VERBALIZED THAT SHE HAS BEEN DOING THIS AT HOME. PT. VERBALIZED SHE WAS READY TO GO HOME AT 1355. PT. JUST WANTED TO GO HOME & PUT A PAIN PATCH ON & TAKE HER PAIN MEDS. PT. INSTRUCTED SHE COULD RESUME HER MEDS. PT. WITH HER BANDAID D&I. PT. INSTRUCTED THAT IF HER PAIN GOT WORSE OR DIDN'T GET BETTER TO NOTIFY DR. RAZA.
== END 2019-05-30 16:10 | disposition home or self-care (01) ==
LOC: ORSCSDS 13:44
PROVIDERS: Anesthesiology
PROC: 3E0R33Z Introduction of Anti-inflammatory into Spinal Canal, Percutaneous Approach (ICD-10-PCS; principal; 2019-05-30 15:00)
DX: M50.122 Cervical disc disorder at C5-C6 level with radiculopathy (principal); F32.9 Major depressive disorder, single episode, unspecified; I10 Essential (primary) hypertension; J45.909 Unspecified asthma, uncomplicated; E03.9 Hypothyroidism, unspecified; Z79.899 Other long term (current) drug therapy
CPT/HCPCS: J1040; J2250; J3010

== ENCOUNTER 2019-08-22 21:02 | Emergency (ER) | payer MEDICARE, OTHER ==
[~2019-08-22] VITALS: Ht 154.9 cm; Wt 56.7 kg
[~2019-08-22 21:02] MED LIST changes: +Cymbalta20 MG; +OXYC10TA19; +TIZA4; +TRAZ50
[2019-08-22 21:40] LABS: BASOPHILS ABSOLUTE AUTO 0.03 K/mm3 (0.00-0.23); BASOPHILS PERCENT AUTO 0 % (0-2); EOSINOPHILS ABSOLUTE AUTO 0.12 K/mm3 (0.00-0.68); EOSINOPHILS PERCENT AUTO 2 % (0-6); Hematocrit 45.2 % (33.0-51.0); Hemoglobin 14.6 g/dL (11.5-16.0); IMMATURE GRAN ABSOLUTE AUTO 0.09 K/mm3 (0.00-0.10); IMMATURE GRAN PERCENT AUTO 1 % (0-1); LYMPHOCYTES ABSOLUTE AUTO 2.29 K/mm3 (0.84-5.20); LYMPHOCYTES PERCENT AUTO 31 % (21-46); MONOCYTES ABSOLUTE AUTO 0.52 K/mm3 (0.16-1.47); MONOCYTES PERCENT AUTO 7 % (4-13); Mean Corpuscular HGB 30.5 pg (26.0-34.0); Mean Corpuscular HGB Conc 32.3 g/dL (31.5-36.5); Mean Corpuscular Volume 95 fL (80-100); Mean Platelet Volume 9.8 fL (9.1-12.4); NEUTROPHILS ABSOLUTE AUTO 4.33 K/mm3 (1.96-9.15); NEUTROPHILS PERCENT AUTO 59 % (41-73); Platelet Count 312 K/mm3 (150-400); RDW Coefficient Variation 11.9 % (11.7-14.2); RDW Standard Deviation 41.1 fL (35.1-46.3); Red Blood Cell Count 4.78 M/mm3 (3.80-5.20); White Blood Cell Count 7.38 K/mm3 (4.00-11.30)
[2019-08-22 22:00] LABS: Alanine Aminotransfer (ALT/SGP 28 U/L (12-78); Albumin, Blood 4.4 g/dL (3.4-5.0); Albumin/Globulin Ratio 1.2 (0.8-1.8); Alk Phos 99 U/L (50-136); Anion Gap 8 mmol/L (6-16); Aspartate Aminotrans (AST/SGOT 24 U/L (12-37); Bilirubin, Total 0.3 mg/dL (0.1-1.0); Blood Urea Nitrogen 46 mg/dL (8-24); Bun/Creatinine Ratio 34.6 (12.0-20.0); CO2, Blood 25 mmol/L (21-32); Calcium, Blood 11.4 mg/dL (8.5-10.1); Chloride, Blood 104 mmol/L (98-108); Creatinine, Blood 1.33 mg/dL (0.40-1.00); Globulin, Blood 3.8 g/dL (2.2-4.0); Glomerular Filtration Rate 42 (60-); Glucose, Blood 140 mg/dL (70-99); Potassium, Blood 4.2 mmol/L (3.5-5.5); Sodium, Blood 137 mmol/L (136-145); Total Protein, Blood 8.2 g/dL (6.4-8.2); Troponin I <0.015 ng/mL (0.000-0.040)
[2019-08-22 23:06] LABS: Source, Urine Clean Catch
[2019-08-22 23:15] LABS: Bilirubin, Urine Neg (Neg); Blood, Urine Neg (Neg); Glucose Qualitative, Urine Neg (Neg); Ketones, Urine Neg (Neg); Leukocyte Esterase, Urine Neg (Neg); Nitrite, Urine Neg (Neg); Protein, Urine Neg (Neg); Specific Gravity, Urine 1.005 (1.003-1.022); Urobilinogen, Urine NORM (Normal)
[2019-08-22 23:21] LABS: Appearance, Urine Clear (Clear); Color, Urine Pale Yellow (P-Yellow)
[2019-08-22 23:26] LABS: U Amphetamine Screen Not Detected; U Barbituate Screen Not Detected; U Benzodiazapine Screen Not Detected; U Buprenorphine Screen Not Detected; U Cannabinoids Screen Not Detected; U Cocaine Screen Not Detected; U Methadone Screen Not Detected; U Methamphetamine Screen Not Detected; U Opiates Screen Not Detected; U Oxycodone Screen DETECTED; U Phencyclidine Screen Not Detected; U Propoxyphene Screen Not Detected
== END 2019-08-23 00:26 | disposition home or self-care (01) ==
LOC: ER 21:02
PROVIDERS: Emergency Medicine
DX: R11.2 Nausea with vomiting, unspecified (principal); E86.0 Dehydration; G89.4 Chronic pain syndrome; I10 Essential (primary) hypertension; E03.9 Hypothyroidism, unspecified; E78.5 Hyperlipidemia, unspecified; G43.909 Migraine, unspecified, not intractable, without status migrainosus; Z88.5 Allergy status to narcotic agent; Z88.8 Allergy status to other drugs, medicaments and biological substances; Z79.899 Other long term (current) drug therapy; Z79.51 Long term (current) use of inhaled steroids
CPT/HCPCS: 36415; 80053; 81003; 83690; 84484; 85025; 93005; 93010; 96361; 96374; 99284-25; A9270-GY; J2405; J7030

== ENCOUNTER 2020-03-04 10:56 | Day surgery (SDC) | payer MEDICARE, OTHER ==
[~2020-03-04] VITALS: Ht 149.9 cm; Wt 58.9 kg
[~2020-03-04 10:56] MED LIST changes: +Crestor20 MG PO; -Cymbalta20 MG; +Cymbalta20 MG PO; -OXYC10TA19; +OXYC10TA19 PO; -TIZA4; +TIZA4 PO; -TRAZ50; +TRAZ50 PO
--- NOTE | 2020-03-04 12:02 | NUR ---
03/04/20 1202 Jania May AND VERSED GIVEN PER VERBAL ORDER FROM DR. RAZA.
== END 2020-03-04 12:25 | disposition home or self-care (01) ==
LOC: ORSCSDS 10:56
PROVIDERS: Anesthesiology
PROC: 3E0R33Z Introduction of Anti-inflammatory into Spinal Canal, Percutaneous Approach (ICD-10-PCS; principal; 2020-03-04 12:00)
DX: M50.122 Cervical disc disorder at C5-C6 level with radiculopathy (principal); F41.8 Other specified anxiety disorders; E78.00 Pure hypercholesterolemia, unspecified; E03.9 Hypothyroidism, unspecified; J45.909 Unspecified asthma, uncomplicated; E78.5 Hyperlipidemia, unspecified; I10 Essential (primary) hypertension; Z79.899 Other long term (current) drug therapy
CPT/HCPCS: J1040; J2250; J2405; J2704; J3010

== ENCOUNTER → 2022-10-11 | Outpatient (CLI) | payer MEDICARE, OTHER ==
[2022-10-11 17:08] LABS: BASOPHILS ABSOLUTE AUTO 0.07 K/mm3 (0.00-0.23); BASOPHILS PERCENT AUTO 1 % (0-2); EOSINOPHILS ABSOLUTE AUTO 0.47 K/mm3 (0.00-0.68); EOSINOPHILS PERCENT AUTO 6 % (0-6); Hematocrit 46.1 % (33.0-51.0); Hemoglobin 15.2 g/dL (11.5-16.0); IMMATURE GRAN ABSOLUTE AUTO 0.03 K/mm3 (0.00-0.10); IMMATURE GRAN PERCENT AUTO 0 % (0-1); LYMPHOCYTES ABSOLUTE AUTO 2.35 K/mm3 (0.84-5.20); LYMPHOCYTES PERCENT AUTO 30 % (21-46); MONOCYTES ABSOLUTE AUTO 0.45 K/mm3 (0.16-1.47); MONOCYTES PERCENT AUTO 6 % (4-13); Mean Corpuscular HGB 31.4 pg (26.0-34.0); Mean Corpuscular Volume 95 fL (80-100); Mean Platelet Volume 10.2 fL (9.1-12.4); NEUTROPHILS ABSOLUTE AUTO 4.35 K/mm3 (1.96-9.15); NEUTROPHILS PERCENT AUTO 56 % (41-73); Platelet Count 271 K/mm3 (150-400); RDW Coefficient Variation 12.6 % (11.7-14.2); RDW Standard Deviation 44.7 fL (35.1-46.3); Red Blood Cell Count 4.84 M/mm3 (3.80-5.20); White Blood Cell Count 7.72 K/mm3 (4.00-11.30)
[2022-10-11 17:36] LABS: Alanine Aminotransfer (ALT/SGP 45 U/L (12-78); Albumin/Globulin Ratio 1.3 (0.8-1.8); Alk Phos 86 U/L (50-136); Anion Gap 3 mmol/L (6-16); Aspartate Aminotrans (AST/SGOT 29 U/L (12-37); Bilirubin, Total 0.4 mg/dL (0.1-1.0); Blood Urea Nitrogen 17 mg/dL (8-24); Bun/Creatinine Ratio 23.8 (12.0-20.0); CHOL/HDL RATIO 1.8; CO2, Blood 27 mmol/L (21-32); Calcium, Blood 10.5 mg/dL (8.5-10.1); Chloride, Blood 109 mmol/L (98-108); Cholesterol 137 mg/dL (50-200); Creatinine, Blood 0.71 mg/dL (0.40-1.00); Globulin, Blood 3.1 g/dL (2.2-4.0); Glomerular Filtration Rate 89 (60-); Glucose, Blood 110 mg/dL (70-99); HDL Cholesterol 76 mg/dL (>39); LDL/HDL RATIO 0.4; Low Density Lipoprotein Chol 30 mg/dL (0-110); Potassium, Blood 4.2 mmol/L (3.5-5.5); Sodium, Blood 139 mmol/L (136-145); Total Protein, Blood 7.1 g/dL (6.4-8.2); Triglycerides 155 mg/dL (30-160); Very Low Density Lipoprot Chol 31 mg/dL (6-32)
[2022-10-11 17:43] LABS: Thyroid Stimulating Hormone 0.078 uIU/mL (0.360-4.800)
== END | disposition home or self-care (01) ==
LOC: LAB SHORT 14:06 → LAB 14:06
PROVIDERS: Family Medicine
DX: E03.9 Hypothyroidism, unspecified (principal); I10 Essential (primary) hypertension
CPT/HCPCS: 80053; 80061; 84443; 85025